=== PATIENT | female | born 1965 | race Caucasian/White ===

== ENCOUNTER 2017-06-23 13:47 | Emergency (ER) | payer BC ==
[~2017-06-23] VITALS: Ht 167.6 cm; Wt 64.0 kg
[2017-06-23 13:55] VITALS: Ht 167.6 cm; Wt 64.0 kg
--- NOTE | 2017-06-23 14:53 | RADRPT ---
PROCEDURE: US Lower extremity Venous. CLINICAL INDICATION: Right leg edema TECHNIQUE: Multiple sonographic images of the right lower extremity deep venous system was obtaine d utilizing grayscale, color-flow, compressive sonography and doppler imaging with augmentation. Th e images were reviewed on a PACS workstation. COMPARISON: None. FINDINGS: There is normal compressibility and flow within the right common femoral, femoral, posterior tibial, peroneal and popliteal veins. RPTAT: AA IMPRESSION: No sonographic evidence for deep venous thrombosis. .Nelson Ontiveros MD, MD Date Time Electronically viewed and signed by .Nelson Ontiveros MD, MD on 06/23/2017 14:53 .S/
[2017-06-23] MEDS ORDERED: NAPR-260 PO (14:58)
--- NOTE | 2017-06-23 17:15 | ERD ---
ER Documentation Chief Complaint Chief Complaint R LEG PAIN AND CALF PAIN AFTER BLUNT FORCE TRAUMA. NO BLEEDING NOTED HPI 51-year-old woman developed small blue-colored hematoma to posterior right calf after she stepped on a large stone on the ground, which also struck her right lower ankle. She is concerned about a superficial varicose vein versus deep vein thrombosis. Patient denies oral hormone use, no history of blood clots, no chest pain or shortness of breath, no bleeding, no fevers or chills. ROS All systems reviewed and are negative except as per history of present illness. Medications Home Meds Active Scripts Naproxen* (Naprosyn*) 500 Mg Tablet, 500 MG PO BID Y for PAIN AND/OR INFLAMMATION, #30 TAB Prov:ERNA ALBERTS MD 06/23/17 PMhx/Soc None History of Surgery: Yes (RT FOOT MEDIAL SESAMOIDECTOMY, TONSILLECTOMY) Anesthesia Reaction: No Hx Neurological Disorder: No Hx Respiratory Disorders: No Hx Cardiac Disorders: No Hx Psychiatric Problems: No Hx Miscellaneous Medical Probl: No Hx Alcohol Use: Yes (OCCASIONAL WINE) Hx Substance Use: No Hx Tobacco Use: No Smoking Status: Never smoker FmHx Family History: No diabetes Physical Exam Vitals Vital Signs Date Time Temp Pulse Resp B/P Pulse Ox O2 Delivery O2 Flow Rate FiO2 06/23/17 13:55 97.9 80 20 138/75 98 Physical Exam GENERAL: Well-developed, well-nourished, well-hydrated, in no apparent distress , looks nontoxic in appearance HEENT: Moist mucous membranes, pink conjunctiva, no cervical spine tenderness or step-off deformities, no goiter, no jaundice or icterus, extraocular movements intact without pain. No submandibular induration, and no pharyngeal erythema NEURO: Alert and oriented 3, cranial nerves II through XII intact bilaterally, pupils equal round reactive to light, no focal deficits or facial asymmetry, sensation intact distally Strength 5/5 in upper and lower extremities bilaterally CARDIAC: Regular rate and rhythm, no murmurs rubs or gallops LUNGS: Clear bilaterally no wheezing crackles or stridor ABDOMEN: Soft nontender, no guarding, no rigidity, no rebound, no psoas sign no obturator sign. Normoactive bowel sounds SKIN: Warm and dry to touch, superficial hematoma to the right posterior calf it appears it may be a superficial venous varicosity, no lacerations, no skin breakdown, no discharge or bleeding. EXTREMITIES: No clubbing cyanosis or edema, calves are bilaterally symmetrical, no Homans sign, no popliteal cord sign. Distal pulses equal and bilateral PSYCH: Normal affect without agitation or irritability Procedures/MDM Ultrasound of the right lower extremity was performed, no deep vein thrombosis noted. Reassurance provided, patient discharged with NSAIDs, I suspect traumatic superficial varicose vein of the right lower extremity Patient feels much better at this time, and vital signs are normal, symptoms have improved. I did give strict instructions to return to the ED if symptoms continue or worsen, patient will otherwise follow-up with primary care physician. Patient understood instructions and agreed to plan. Disclaimer: Inadvertent spelling and grammatical errors are likely due to EHR/ dictation software use and do not reflect on the overall quality of patient care. Also, please note that the electronic time recorded on this note does not necessarily reflect the actual time of the patient encounter. Departure Diagnosis: Primary Impression: Hematoma Additional Impression: Varicose vein of leg Condition: Good Patient Instructions: ERNA Norman MD Jun 23, 2017 17:15
== END 2017-06-23 18:32 | disposition home or self-care (01) ==
LOC: E/R 13:47
DX: S80.11XA Contusion of right lower leg, initial encounter (principal); I83.91 Asymptomatic varicose veins of right lower extremity; W22.8XXA Striking against or struck by other objects, initial encounter; Y92.9 Unspecified place or not applicable
CPT/HCPCS: 93971

== ENCOUNTER 2017-07-15 07:38 | Emergency (ER) | payer BC, OTHER ==
[~2017-07-15] VITALS: Ht 167.6 cm; Wt 62.7 kg
[~2017-07-15 07:38] MED LIST: NAPR-260 PO
[2017-07-15 07:42] VITALS: Ht 167.6 cm; Wt 62.7 kg
--- NOTE | 2017-07-15 07:44 | ERD ---
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 She was transferring blood from a syringe into a blood culture bottle and then when removing the needle from the bottle a small amount splash into her face. She was wearing glasses and denies any mucous membranes exposure. Immediate extensive washing and irrigation. Vaccinations up-to-date including tetanus, hepatitis A and hepatitis B. In the absence of signs of severe illness, symptomatic treatment at this time is appropriate. ROS All systems reviewed and are negative except as per history of present illness. Medications Home Meds Active Scripts Naproxen* (Naprosyn*) 500 Mg Tablet, 500 MG PO BID Y for PAIN AND/OR INFLAMMATION, #30 TAB Prov:ERNA ALBERTS MD 06/23/17 Allergies Allergies: Coded Allergies: No Known Allergy (Unverified , 07/15/17) PMhx/Soc Reviewed in chart. As per HPI. History of Surgery: Yes (RT FOOT MEDIAL SESAMOIDECTOMY, TONSILLECTOMY) Anesthesia Reaction: No Hx Neurological Disorder: No Hx Respiratory Disorders: No Hx Cardiac Disorders: No Hx Psychiatric Problems: No Hx Miscellaneous Medical Probl: No Hx Alcohol Use: Yes (OCCASIONAL WINE) Hx Substance Use: No Hx Tobacco Use: No FmHx Not relevant to presenting complaint Physical Exam Vitals Vital Signs Date Time Temp Pulse Resp B/P Pulse Ox O2 Delivery O2 Flow Rate FiO2 07/15/17 07:42 97.8 76 18 115/68 100 Physical Exam Const: Alert, no acute distress Head: Atraumatic Eyes: Normal Conjunctiva ENT: Normal External Ears, Nose and Mouth. Neck: Full range of motion. Tender Resp: Clear to auscultation bilaterally Cardio: Regular rate and rhythm, no murmurs Abd: Soft, non tender, non distended. Normal bowel sounds Skin: No petechiae or rashes Ext: No cyanosis, or edema Neur: Awake and alert Psych: Normal Mood and Affect Result Diagram: 07/15/17 0754 Results 24 hrs Laboratory Tests Test 07/15/17 07:54 White Blood Count 6.610^3/ul Red Blood Count 4.5310^6/ul Hemoglobin 13.8g/dl Hematocrit 39.5% Mean Corpuscular Volume 87.2fl Mean Corpuscular Hemoglobin 30.5pg Mean Corpuscular Hemoglobin Concent 34.9g/dl Red Cell Distribution Width 12.3% Platelet Count 43019^3/UL Mean Platelet Volume 10.2fl Neutrophils % 62.0% Segmented Neutrophils % (Manual) 70% Lymphocytes % 26.2% Lymphocytes % (Manual) 25% Monocytes % 8.7% Monocytes % (Manual) 4% Eosinophils % 2.3% Basophils % 0.6% Basophils % (Manual) 1% Nucleated Red Blood Cells % 0.0/100WBC Neutrophils # 4.110^3/ul Absolute Lymphocytes (Manual) 1.610^3/ul Lymphocytes # 1.710^3/ul Monocytes # 0.610^3/ul Absolute Monocytes (Manual) 0.210^3/ul Eosinophils # 0.210^3/ul Basophils # 0.010^3/ul Basophils # (Manual) 0.010^3/ul Nucleated Red Blood Cells # 0.010^3/ul Platelet Estimate NORMAL Anisocytosis 1+ Total Bilirubin 0.4mg/dl Direct Bilirubin 0.00mg/dl Indirect Bilirubin 0.4mg/dl Aspartate Amino Transf (AST/SGOT) 25IU/L Alanine Aminotransferase (ALT/SGPT) 35IU/L Alkaline Phosphatase 53IU/L Total Protein 7.6g/dl Albumin 4.6g/dl Hepatitis B Surface Antigen NEGATIVE Hepatitis B Surface Antibody POSITIVE Hepatitis C Antibody NEGATIVE HIV (1&2) Antibody NEGATIVE Current Medications Medications (Trade) Dose Ordered Sig/J Luis Route PRN Reason Start Time Stop Time Status Last Admin Dose Admin Acetaminophen (Tylenol Liquid (Ped)) 940 mg ONCE STAT PO 07/15/17 07:55 07/15/17 07:56 Cancel Ibuprofen (Motrin Liquid (Ped)) 500 mg ONCE STAT PO 07/15/17 07:55 07/15/17 07:56 Cancel Procedures/MDM DOCUMENTS REVIEWED: ED nurse, 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 Low risk exposure. Risks and benefits of postexposure prophylaxis were explained and understood and the patient refusing postexposure prophylaxis. Labs are drawn on the patient and the source patient as per protocol are pending. Stable for discharge of precautionary instructions and outpatient follow-up as counseled. Counseled patient regarding diagnostic workup, diagnosis and need for followup. Understands to return to ED if symptoms recur, worsen or any other concerns. Departure Diagnosis: Primary Impression: Exposure to blood or body fluid Condition: NORMA Stark MD Jul 15, 2017 07:44
[2017-07-15] MEDS ORDERED: IBUPROFEN LIQUID (PED) 20 MG/ML CUP PO STA (07:55)
[2017-07-15] MEDS ORDERED: ACETAMINOPHEN 160 MG/5ML CUP PO STA (07:55)
[2017-07-15 08:20] LABS: BASOPHILS % 0.6 % (0.0-2.0); EOSINOPHILS # 0.2 10^3/ul (0.0-0.5); EOSINOPHILS % 2.3 % (0.0-7.0); HEMATOCRIT 39.5 % (37.0-47.0); HEMOGLOBIN 13.8 g/dl (12.0-16.0); LYMPHOCYTES # 1.7 10^3/ul (0.8-2.9); LYMPHOCYTES % 26.2 % (15.0-51.0); MEAN CORPUSCULAR HEMOGLOBIN 30.5 pg (29.0-33.0); MEAN CORPUSCULAR HGB CONC 34.9 g/dl (32.0-37.0); MEAN CORPUSCULAR VOLUME 87.2 fl (82.0-101.0); MEAN PLATELET VOLUME 10.2 fl (7.4-10.4); MONOCYTE # 0.6 10^3/ul (0.3-0.9); MONOCYTES % 8.7 % (0.0-11.0); NEUTROPHIL # 4.1 10^3/ul (1.6-7.5); PLATELET COUNT 282 10^3/UL (140-415); RED BLOOD COUNT 4.53 10^6/ul (4.20-5.40); RED CELL DISTRIBUTION WIDTH 12.3 % (11.5-14.5); WHITE BLOOD COUNT 6.6 10^3/ul (4.8-10.8)
[2017-07-15 08:42] LABS: ALANINE AMINOTRANSFERASE 35 IU/L (13-69); ALBUMIN 4.6 g/dl (3.3-4.9); ALKALINE PHOSPHATASE 53 IU/L (42-121); ASPARTATE AMINO TRANSFERASE 25 IU/L (15-46); BILIRUBIN,INDIRECT 0.4 mg/dl (0-1.1); BILIRUBIN,TOTAL 0.4 mg/dl (0.2-1.3); TOTAL PROTEIN 7.6 g/dl (6.1-8.1)
[2017-07-15 09:59] LABS: ANISOCYTOSIS 1+ (0-0); BASOPHILS % (M) 1 % (0-2); MONOCYTES % (M) 4 % (0-11); PLATELET ESTIMATE NORMAL
== END 2017-07-15 08:18 | disposition home or self-care (01) ==
LOC: EDSTATUS 07:38 → E/R 07:38
DX: Z77.21 Contact with and (suspected) exposure to potentially hazardous body fluids (principal)
CPT/HCPCS: 80076; 85025; 86703; 86706; 86803; 87340; 99283

== ENCOUNTER 2018-05-08 22:47 | Emergency (ER) | END 2018-05-08 23:31 | disposition home or self-care (01) ==

== ENCOUNTER 2018-10-10 05:41 | Emergency (ER) | payer SELFPAY ==
[~2018-10-10] VITALS: Ht 167.6 cm; Wt 63.6 kg
[~2018-10-10 05:41] MED LIST changes: +FLUC150T PO; -NAPR-260 PO; +NAPR-985 PO
[2018-10-10 06:04] VITALS: Ht 167.6 cm; Wt 63.6 kg
[2018-10-10] MEDS ORDERED: NAPR-985 PO (06:23)
[2018-10-10] MEDS ORDERED: HYDR-4011 PO (06:23)
[2018-10-10] MEDS ORDERED: CYCL10TA7 PO (06:23)
[2018-10-10 06:48] VITALS: BP 115/72; PULSE 70; RESP 16
--- NOTE | 2018-10-10 13:06 | ERD ---
ER Documentation Chief Complaint Chief Complaint work related back injury; thoracic back pain, ocampo HPI 53-year-old female presenting with thoracic back pain. 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 She states she had this back pain in the past. She did not acute traumatic injury however describes as an overuse injury. Has not taken medications for symptoms. Denies medical problems. NKDA. Surgical history denies. Social history denies ROS All systems reviewed and are negative except as per history of present illness. Medications Home Meds Active Scripts Cyclobenzaprine Hcl* (Cyclobenzaprine Hcl*) 10 Mg Tablet, 10 MG PO TID, #15 TAB Prov:RUI GIRON PA-C 10/10/18 Naproxen* (Naprosyn*) 500 Mg Tablet, 500 MG PO BID PRN for PAIN AND/OR INFLAMMATION, #30 TAB Prov:RUI GIRON PA-C 10/10/18 Hydrocodone/Acetaminophen ([place] 5-325 Tablet) 1 Each Tablet, 1 TAB PO Q6H PRN for PAIN, #7 TAB Prov:RUI GIRON PA-C 10/10/18 Fluconazole* (Diflucan*) 150 Mg Tablet, 150 MG PO ONCE, #1 TAB Prov:FRANK ESPINO 05/08/18 Naproxen* (Naprosyn*) 500 Mg Tablet, 500 MG PO BID PRN for PAIN AND/OR INFLAMMATION, #30 TAB Prov:ERNA ALBERTS MD 06/23/17 Allergies Allergies: Coded Allergies: No Known Allergy (Unverified , 07/15/17) PMhx/Soc History of Surgery: Yes (RT FOOT MEDIAL SESAMOIDECTOMY, TONSILLECTOMY) Anesthesia Reaction: No Hx Neurological Disorder: No Hx Respiratory Disorders: No Hx Cardiac Disorders: No Hx Psychiatric Problems: No Hx Miscellaneous Medical Probl: No Hx Alcohol Use: Yes (OCCASIONAL WINE) Hx Substance Use: No Hx Tobacco Use: No FmHx Family History: No diabetes, No coronary disease, No other Physical Exam Vitals Vital Signs Date Temp Pulse Resp B/P (MAP) Pulse Ox O2 O2 Flow FiO2 Time Delivery Rate 10/10/18 70 16 115/72 100 Room Air 06:48 (86) 10/10/18 98.1 64 16 118/58 99 06:04 (78) Physical Exam GENERAL: The patient is well-appearing, well-nourished, in no acute distress CHEST: Clear to auscultation bilaterally. There are no rales, wheezes or rhonchi. HEART: Regular rate and rhythm. No murmurs, clicks, rubs or gallops. No S3 or S4. BACK: No midline or flank tenderness. Palpation along paraspinous muscles of the thoracic spine. No midline tenderness and no bony step-offs felt. EXTREMITIES: Equal pulses bilaterally. There is no peripheral clubbing, cyanosis or edema. No focal swelling or erythema. Full range of motion. NEUROLOGIC: Alert and oriented. Cranial nerves II through XII intact. Motor strength in all 4 extremities with 5 out of 5 strength. Sensation grossly intact. Normal speech and gait. SKIN: There is no apparent rash or petechiae. The skin is warm and dry. Procedures/MDM MDM: 53-year-old female presenting with muscular skeletal strain due to work injury. Patient does not require x-rays and I felt that supportive medication with no appropriate treatment at this time. Patient denied findings consistent with neuro deficit or vascular insufficiency. Patient is discharged stricter precautions. All questions answered at discharge Departure Diagnosis: Primary Impression: Back pain Condition: Stable Patient Instructions: Back Pain (Acute Or Chronic) Referrals: [facility] YOU HAVE RECEIVED A MEDICAL SCREENING EXAM AND THE RESULTS INDICATE THAT YOU DO NOT HAVE A CONDITION THAT REQUIRES URGENT TREATMENT IN THE EMERGENCY DEPARTMENT. FURTHER EVALUATION AND TREATMENT OF YOUR CONDITION CAN WAIT UNTIL YOU ARE SEEN IN YOUR DOCTORS OFFICE WITHIN THE NEXT 1-2 DAYS. IT IS YOUR RESPONSIBILITY TO MAKE AN APPOINTMENT FOR FOLOW-UP CARE. IF YOU HAVE A PRIMARY DOCTOR --you should call your primary doctor and schedule an appointment IF YOU DO NOT HAVE A PRIMARY DOCTOR YOU CAN CALL OUR PHYSICIAN REFERRAL HOTLINE AT IF YOU CAN NOT AFFORD TO SEE A PHYSICIAN YOU CAN CHOSE FROM THE FOLLOWING [facility] [address] [facility] [address] [facility] [address] [facility] [address] [facility]. [facility] [address] [facility]. [facility] [address] Additional Instructions: FOLLOW UP WITH YOUR PRIMARY CARE PHYSICIAN TOMORROW.Return to this facility if you are not improving as expected. RUI GIRON PA-C Oct 10, 2018 13:06
== END 2018-10-10 06:49 | disposition home or self-care (01) ==
LOC: FTE 05:41
DX: M54.6 Pain in thoracic spine (principal)
CPT/HCPCS: 99283